=== PATIENT | female | born 1990 | race Caucasian/White ===

== ENCOUNTER 2018-08-23 21:19 | Emergency (ER) | payer OTHER ==
[~2018-08-23] VITALS: Ht 162.6 cm; Wt 63.5 kg
[2018-08-23] MEDS ORDERED: CYCL10 PO (21:47)
== END 2018-08-23 22:15 | disposition home or self-care (01) ==
LOC: EDBD 21:19 → ER 21:19
DX: M62.838 Other muscle spasm (principal)
CPT/HCPCS: 99283